=== PATIENT | male | born 1985 | race African-American/Black ===

== ENCOUNTER 2017-01-30 14:54 | Inpatient (IN) ==
[2017-01-30] MEDS ORDERED: THIAMINE INJ 100 MG, FOLIC ACID INJ 1 MG, MAGNESIUM SULF INJ 2 GM, MULTIVITAMIN INJ 10 ... IV ONE (16:21)
--- NOTE | 2017-01-30 16:22 | Emergency Department Note ---
Prabhjot Boss Brittany, am scribing for, and in the presence of, Shirin Rangel DO 16:19. IJuan Carlos Debra, DO, personally performed the services described in this documentation, ascribed by Gayle Rick in my presence, and it is both accurate and complete 622 . Arrival - Arrival Chief Complaint: Non-Specific Stated Complaint: yellow eyes/swollen feet ED Nursing Triage Note: C/O SWELLING IN HIS LEFT LEG SINCE LAST EVENING., STATES HE NOTICED HIS EYES WERE YELLOW LAST EVENING, + SCLERAL YELLOW AT TIME OF TRIAGE., + PITTING EDEMA NOTED TO THE LEFT ANKLE AND LEFT LOWER LEG., ALSO STATES HIS STOMACH IS SWOLLEN.,. STATES HE DRINKS 6 BEERS AND PINT OF LIQIOUR PER DAY FOR THE LAST 5-6 YEARS Mode of Arrival: Ambulatory Limitations: No Limitations Source: Patient, RN Notes Reviewed - History of Present Illness HPI Narrative: Patient is a 31 y/o black male presenting to the ED with multiple complaints with an onset of a week. Patient for the past week has had some scleral icterus , lower extremity edema, abdominal distention, abdominal pain, N/V, and calf pain. in room confirms that patient has been vomiting at least once everyday after ETOH intake and has been "sluggish" for the past two days. Patient does admit to an ETOH intake of 6 beers and a pint of liquor per day for the past 5-6 years. No other complaint/pain. Allergies/Adverse Reactions: Allergies Allergy/AdvReac Type Severity Reaction Status Date / Time No Known Allergies Allergy Verified 01/30/17 15:04 Home Medications: Home Medications Medication Instructions Recorded Confirmed Type No Known Home Medications [No 01/30/17 01/30/17 History Known Home Medications] Review of System - Review of System 12 point system: reviewed and no additional remarkable complaints except as stated - Review of System Eyes: Present: as per HPI Gastrointestinal: Present: as per HPI, abdominal pain, nausea, vomiting Medical,Surgical,& Family Hx - Medical History Cardio: History of: Hypertension Gastrointestinal: History of: GERD - Surgical History Thoracic Surgeries: Patient denies;: Lobectomy Neurologic Surgeries: Patient denies: Neurologic Surgery Orthopedic Surgeries: Surgical HX of;: Orthopedic Surgery (neck) - Family History Family History: Reports;: Family Heart Disease (father (unknown heart surgery at 56).), Family Hypertension (mother) - Social History Smoking Status: Smoker, status unknown Frequency of Alcohol Use: Frequently Type of Drug Use: None Exam Vital Signs: Vital Signs Temperature 98.3 F 01/30/17 14:58 Pulse Rate 92 H 01/30/17 14:58 Respiratory Rate 18 01/30/17 14:58 Blood Pressure 122/92 01/30/17 14:58 O2 Sat by Pulse Oximetry 97 01/30/17 14:58 - General General appearance: alert, in no apparent distress - Head Head exam: Present: atraumatic, normocephalic, normal inspection - Eye Eye exam: Present: PERRL, EOMI, scleral icterus. Absent: normal appearance - ENT ENT exam: Present: normal exam, normal oropharynx - Neck Neck exam: Present: normal inspection, full ROM, trachea midline - Chest Chest inspection: Present: normal inspection, symmetric chest wall rise - Respiratory Respiratory exam: Present: normal lung sounds bilaterally. Absent: rales, rhonchi, wheezes - Cardiovascular Cardiovascular exam: Present: regular rate, normal rhythm, normal heart sounds. Absent: murmur, rubs, gallop - Abdominal Exam Abdominal exam: Present: soft, normal bowel sounds, organomegaly (slightly enlarged liver). Absent: distention, tenderness - Extremities Exam Extremities exam: Present: full ROM. Absent: normal inspection (mildly swollen left lower extremity) - Back Exam Back exam: Present: normal inspection - Neurological Exam Neurological exam: Present: alert, oriented X3, CN II-XII intact. Absent: motor sensory deficit - Psychiatric Psychiatric exam: Present: normal affect, normal mood - Skin Skin exam: Present: warm, dry Results - Labs CBC & BMP: 01/30/17 16:45 01/30/17 16:45 Lab Results: I have reviewed the patients labs Labs: Laboratory Tests 01/30/17 16:45 WBC 15.3 H RBC 4.23 Hgb 10.6 L Hct 31.3 L MCV 74.0 L MCH 25 L RDW 19.4 H Plt Count 111 L Lymph % (Auto) 15.0 L Neut # (Auto) 10.9 H [place] # (Auto) 1.4 H Laboratory Tests 01/30/17 16:19 Urine Color Janae Urine Appearance Clear Urine pH 6.0 Ur Specific Viola 1.018 Urine Protein Negative Urine Glucose (UA) Negative Urine Ketones Negative Urine Blood Negative Urine Nitrate Negative Urine Bilirubin Moderate H Urine Urobilinogen 4.0 H Urine Leukocytes Negative Urine WBC 2 Urine Mucus Occasional Laboratory Tests 01/30/17 01/30/17 16:45 16:45 Sodium 133 L Potassium 4.0 Chloride 100 BUN 8 Creatinine 0.90 Glucose 101 Calculated Osmolality 263.4 L Calcium 7.7 L Total Bilirubin 11.20 H AST 75 H Alkaline Phosphatase 540 H Ammonia < 10 L Total Protein 4.9 L Albumin 1.5 L Albumin/Globulin Ratio 0.4 L Serum Alcohol < 15 L Laboratory Tests 01/30/17 16:45 Ammonia < 10 L Lipase 306.0 - Diagnostic Findings Procedure: Chest x-ray: report reviewed by me (Minimal opacities within the right lung base may represent atelectasis although developing infectious/ inflammatory infiltrates are not excluded.) Disposition Clinical Impression: ETOH abuse, Pneumonia Case discussed with: patient, patient's family Disposition: Still a Patient Condition: Stable Time of Disposition: 17:55
[2017-01-30 16:56] LABS: Basophils # 0.1 10*3/uL (0.0-0.2); Basophils % 0.3 % (0.0-0.8); Eosinophils # 0.1 10*3/uL (0.0-0.87); Eosinophils % 0.7 % (0.00-10.9); Hematocrit 31.3 VOL% (42.0-52.0); Hemoglobin 10.6 GM/DL (14.0-18.0); Immature Granulocytes Absolute 0.45 #; Lymphocytes # 2.3 10*3/uL (1.4-4.0); Mean Corpuscular HGB Conc 33.9 GM/DL (32-36); Mean Corpuscular Hemoglobin 25 PG (27-34); Monocytes # 1.4 10*3/uL (0.11-0.8); Monocytes % 9.2 % (1.7-12.7); NRBC # 0.94 10*3/uL; Neutrophils # 10.9 10*3/uL (1.4-7.4); Neutrophils % 71.8 % (38.7-73.9); Platelet Count 111 T/CUMM (130-400); Red Blood Count 4.23 MC/CUMM (3.8-5.5); Red Cell Distribution Width 19.4 % (9.3-17.3); White Blood Count 15.3 T/CUMM (4-12)
[2017-01-30 17:09] LABS: Apearance,Urine CLEAR (Clear); Bilirubin,Urine Moderate mg/dL (Negative); Blood, Urine Negative (Negative); Glucose,Urine (UA) Negative (Negative); Ketones,Urine Negative (Negative); Mucus,Urine Occasional /LPF (Occasional); Nitrite,Urine Negative (Negative); Protein,Urine Negative; Urine Color Amber (Yellow); Urine Specific Gravity 1.018 (1.001-1.035); WBC,Urine 2 /HPF (0-6)
[2017-01-30 17:15] LABS: Alanine Aminotransferase 59 U/L (16-61); Albumin 1.5 G/DL (3.4-5.0); Alkaline Phosphatase 540 U/L (45-117); Aspartate Amino Transferase 75 U/L (0-37); Blood Urea Nitrogen 8 MG/DL (7-18); Calcium 7.7 MG/DL (8.5-10.1); Glucose 101 MG/DL (74-106); Osmolality,Calculated 263.4 MOS/KG (273-304); Sodium 133 MMOL/L (136-145); Total Protein 4.9 G/DL (6.4-8.3)
[2017-01-30 17:21] LABS: Ammonia < 10 UMOL/L (11-32)
--- NOTE | 2017-01-30 17:25 | XRay Report ---
Exam: XR chest 1V portable Indication: Shortness of breath Comparison study: 08/12/2015 Findings: The heart, mediastinum and bony structures are stable from prior. Minimal linear/interstitial opacities are noted in the right lung base, which are new from prior. Otherwise, there is no focal consolidation, pneumothorax or pleural effusion identified. Impression: Minimal opacities within the right lung base may represent atelectasis although developing infectious/inflammatory infiltrates are not excluded. PROCEDURE INTERPRETED AT [facility] [place] DEPARTMENT OF RADIOLOGY Final Report Signed by: Ashwin Doty
[2017-01-30] MEDS ORDERED: cefTRIAXone 1,000 MG in SODIUM CHLORIDE 0.9% 100 ML IV STA (17:55)
[2017-01-30] MEDS ORDERED: cefTRIAXone 1,000 MG VIAL ONE (18:10)
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
[2017-01-30 18:29] LABS: Hepatitis A Ab IgM Quant 0.08 Index; Hepatitis A Ab IgM Result Negative (Negative); Hepatitis B Core IgM Quant 0.16 Index; Hepatitis B Core IgM Result Negative (Negative); Hepatitis B Surface Ag Result Negative (Negative); Hepatitis C Virus Ab Result Negative (Negative)
[2017-01-30 19:09] LABS: PT Patient Result 10.3 SECS
--- NOTE | 2017-01-30 19:47 | Ultrasound Report ---
Exam: US abdomen Date:01/30/2017 5:52 PM Indication: Abnormal liver function studies Comparison: Prior CT abdomen and pelvis without contrast dated Nov 09 2011 Findings: Liver: 16.1 centimeters. There is no focal lesion. There is no intrahepatic biliary ductal dilatation. Gallbladder: Moderate pericholecystic fluid and wall thickening is noted. No gallstones are visualized. Hepatic portal veins appear patent with normal direction of flow. CBD: Nondilated measuring 0.5 cm. Pancreas: Proximal pancreas appears within normal limits. The distal pancreas is obscured. Kidneys Right kidney: 11.8 x 4.7 x 5.5 cm. The renal cortical echogenicity and thickness appear preserved. There is no hydronephrosis. There is an area of hyperechogenicity within the mid kidney measuring up to 1.4 x 1.3 x 0.7 cm, which is indeterminate. A similar lesion is immediately deep to this previously mentioned lesion and measures 0.9 x 0.7 x 0.4 cm. Both lesions do not demonstrate posterior shadowing. There is a hypoechoic/anechoic lesion likely representing a cyst at the upper pole measuring up to 3 cm maximum dimension. Adjacent to the right kidney upper pole, there is an additional area of hypoechogenicity measuring up to 4.4 x 3.2 x 3 cm. This is not definitely within the renal parenchyma, but it is difficult to locate with urgency and may represent an adrenal cyst. Left kidney: 11.1 x 6.3 x 4.9 cm. Renal cortical echogenicity and thickness are within normal limits. There is no hydronephrosis. Aorta IVC: Aorta is not visualized due to overlying bowel gas. IVC is patent. Spleen: No focal lesions. Spleen measures 7.6 x 3.4 x 3.6 cm maximum dimensions. There is a small amount of ascites within the abdomen. Impression: 1. No acute sonographic abnormality in the abdomen. 2. Gallbladder wall thickening and pericholecystic fluid. Correlate with postprandial state. Acute calculus cholecystitis is not entirely excluded with a relatively less likely. Nuclear medicine gallbladder function study may be helpful for further evaluation. 3. Hyperechoic lesions within the right mid kidney are of indeterminate etiology. Correlation with CT imaging of the abdomen/pelvis with intravenous contrast, renal mass protocol, would be recommended. Additionally, the 4.4 cm hypoechoic, probable cystic lesion immediately adjacent to the upper pole right kidney may represent an adrenal cyst, but this is poorly visualized and can be further evaluated on CT imaging. PROCEDURE INTERPRETED AT [facility] DEPARTMENT OF RADIOLOGY Final Report Signed by: Ashwin Doty
[2017-01-30] MEDS ORDERED: FUROSEMIDE 20 MG/2 ML VIAL IV STA (19:48)
[2017-01-30] MEDS ORDERED: LORazepam 2 MG/1 ML VIAL IV PRN (19:48)
[2017-01-30] MEDS ORDERED: MULTIVITAMIN INJ 10 ML in SODIUM CHLORIDE 0.45% 1,000 ML IV SCH (19:48)
[2017-01-30] MEDS ORDERED: ONDANSETRON 4 MG/2 ML VIAL IV PRN (19:48)
[2017-01-30] MEDS ORDERED: POTASSIUM CHLORIDE 20 MEQ/15 ML UDCUP PO ONE (19:48)
[2017-01-30] MEDS: OXAZEPAM 10 MG CAPSULE PO SCH (21:36)
[2017-01-30 21:37] LABS: Basophils # 0.1 10*3/uL (0.0-0.2); Basophils % 0.5 % (0.0-0.8); Eosinophils # 0.1 10*3/uL (0.0-0.87); Eosinophils % 0.9 % (0.00-10.9); Hematocrit 31.5 VOL% (42.0-52.0); Hemoglobin 10.7 GM/DL (14.0-18.0); Immature Granulocytes % 4.7 %; Lymphocytes # 2.6 10*3/uL (1.4-4.0); Lymphocytes % 17.2 % (21.2-54.2); Mean Corpuscular Hemoglobin 25 PG (27-34); Mean Corpuscular Volume 73.8 FL (87-102); Monocytes # 1.6 10*3/uL (0.11-0.8); Monocytes % 10.7 % (1.7-12.7); NRBC # 0.95 10*3/uL; Neutrophils # 9.8 10*3/uL (1.4-7.4); Red Blood Count 4.27 MC/CUMM (3.8-5.5); Red Cell Distribution Width 19.5 % (9.3-17.3); White Blood Count 14.9 T/CUMM (4-12)
[2017-01-30 21:41] LABS: Platelet Count 103 T/CUMM (130-400)
[2017-01-30 22:05] LABS: Folate > 24.0 NG/ML (5.4-24.0); Vitamin B12 > 2000 PG/ML (211-911)
[2017-01-30 23:37] LABS: Band Neutrophils 4 % (0-10); Lymphocytes 14 % (20-55); Metamyelocytes 2 %; Myelocytes 2 %; Nucleated Red Blood Cells 11 (0-5); Segmented Neutrophils 72 % (50-85); Total Cells Counted 100
[2017-01-30 23:41] LABS: Atypical Lymphocytes Few
[2017-01-30 23:42] LABS: Hypochromasia 1+; Platelet Estimate Adequate; Polychromasia 1+; Target Cells 1+
[2017-01-31 04:34] LABS: Basophils % 0.4 % (0.0-0.8); Eosinophils # 0.1 10*3/uL (0.0-0.87); Hematocrit 26.3 VOL% (42.0-52.0); Hemoglobin 9.1 GM/DL (14.0-18.0); Immature Granulocytes % 3.1 %; Immature Granulocytes Absolute 0.35 #; Lymphocytes # 2.3 10*3/uL (1.4-4.0); Lymphocytes % 20.1 % (21.2-54.2); Mean Corpuscular HGB Conc 34.6 GM/DL (32-36); Mean Corpuscular Hemoglobin 25 PG (27-34); Mean Corpuscular Volume 71.9 FL (87-102); Monocytes # 1.3 10*3/uL (0.11-0.8); Monocytes % 11.6 % (1.7-12.7); NRBC # 0.67 10*3/uL; Neutrophils # 7.3 10*3/uL (1.4-7.4); Neutrophils % 63.8 % (38.7-73.9); Platelet Count 93 T/CUMM (130-400); Red Blood Count 3.66 MC/CUMM (3.8-5.5); Red Cell Distribution Width 19.2 % (9.3-17.3); White Blood Count 11.4 T/CUMM (4-12)
[2017-01-31] MEDS: SODIUM CHLORIDE IV SCH ×2 (04:57→14:54)
[2017-01-31] MEDS: [UNRECOGNIZED DRUG - OTHER] IV SCH ×2 (04:57→14:54)
[2017-01-31] MEDS: MULTIVITAMIN IV SCH ×2 (04:57→14:54)
[2017-01-31 05:06] LABS: Albumin 1.3 G/DL (3.4-5.0); Bilirubin,Total 7.7 MG/DL (0.2-1.0); Calcium 6.9 MG/DL (8.5-10.1); Magnesium 2.5 MG/DL (1.8-2.4); Osmolality,Calculated 274.5 MOS/KG (273-304); Potassium 3.7 MMOL/L (3.5-5.1); Total Protein 4.2 G/DL (6.4-8.3)
[2017-01-31 05:18] LABS: Eosinophils 2 % (0-10); Lymphocytes 14 % (20-55); Myelocytes 1 %; Nucleated Red Blood Cells 5 (0-5); Segmented Neutrophils 79 % (50-85); Total Cells Counted 100
[2017-01-31 05:19] LABS: Hypochromasia 1+; Microcytosis 1+; Platelet Estimate Decreased; Target Cells 2+
[2017-01-31 07:11] LABS: Sedimentation Rate-Westergren 23 MM/HR (0-15)
--- NOTE | 2017-01-31 09:32 | Hospitalist Progress Note ---
Assessment and Plan - Time spent with patient Time spent with patient: Less than 30 minutes (1) Elevated liver function studies Status: Acute Assessment and plan: 01/30/17: Patient has significant elevation of alkaline phosphatase as well as bilirubin with minimal elevation of transaminases. Hepatitis panel has been ordered in the emergency department. Will obtain abdominal ultrasound this time. LFT elevation pattern consistent with intrahepatic cholestasis which is likely secondary to underlying alcohol abuse. INR will be obtained as well to assess synthetic function at which time we will be able to calculate discriminate factor score. Will consult gastroenterology for further assistance. 01/31/17: Hepatitis studies have been negative. Abdominal ultrasound is been noted. GI consultation is currently pending. He has had improvement in his liver function studies at this time. Discuss alcohol abstinence with the patient. Current Visit: Yes (2) Anemia Status: Chronic Assessment and plan: 01/30/17: Patient has anemia which is likely chronic in nature as he is hemodynamically stable. Will obtain anemia profile and stools for occult blood. Further workup pending based on patient's clinical response and the results of the pending database. 01/31/17: Patient remains hemodynamically stable without any evidence of bleeding. Anemia profile is pending this is likely chronic in nature and related to his underlying alcohol abuse. He did have a decrease in H&H overnight which may be secondary to hemodilution. Stool studies are currently pending. He is on IV proton pump inhibitor. Gastroenterology has been consulted. Will continue to follow. Current Visit: Yes (3) Thrombocytopenia Status: Acute Assessment and plan: Patient has mild thrombocytopenia without evidence of bleeding. This is likely secondary to his EtOH use. Platelet count is slightly lower today. We will continue to follow. He will receive mechanical DVT prophylaxis and avoid any pharmacologic measures at this time. Current Visit: Yes (4) ETOH abuse Status: Acute Assessment and plan: Patient has chronic alcohol abuse. Last drink was this morning. Will provide a multivitamin and thiamine supplementation. Will withhold his alcohol at this time and begin benzodiazepines for alcohol withdrawal/DT prophylaxis. Current Visit: Yes (5) Nicotine addiction Status: Chronic Assessment and plan: Patient has chronic nicotine addiction, smoking one half packs per day. Recommended cessation will provide nicotine patch at this time. Current Visit: No Qualifiers: Nicotine product type: cigarettes (6) Malnutrition Status: Chronic Assessment and plan: Patient has albumin of 1.5. Malnutrition likely secondary to underlying alcohol abuse as well. Will provide multivitamin, thiamine, nutritional support. Current Visit: Yes (7) Renal mass Status: Acute Assessment and plan: We will obtain CT abdomen and pelvis with IV contrast, renal protocol for further evaluation. Current Visit: Yes Hospitalist: Subjective Interval history: Patient has no new complaints today. Swelling of his legs is improved. He continues to be concerned about his abdominal tightness. He denies any nausea, vomiting, diarrhea, melena, hematochezia or hematemesis at this time. Exam - Constitutional Vitals: Period Temp Pulse Resp BP Sys/Mensah Pulse Ox Last 24 Hr 97.7 F-99.2 F 73-116 18-20 105-127/60-82 98-99 General appearance: no acute distress - Head Head exam: Present: normocephalic, atraumatic - Eye Eye exam: Present: EOMI, scleral icterus Pupils: Present: BERE - ENT ENT exam: Present: normal oropharynx - Neck Neck exam: Present: normal inspection - Respiratory Respiratory exam: Present: clear to auscultation bilaterally. Absent: rales, rhonchi, wheezes - Cardiovascular Cardiovascular exam: Present: regular rate and rhythm. Absent: systolic murmur , tachycardia - GI/Abdominal GI/Abdominal exam: Present: normal bowel sounds, distended, soft. Absent: mass , tenderness, rebound - Extremities Exam Extremities exam: Absent: calf tenderness, edema - Back Exam Back exam: Present: normal inspection - Neurological Exam Neurological exam: Present: alert, oriented X3, CN II-XII intact. Absent: motor sensory deficit - Psychiatric Psychiatric exam: Present: normal affect, normal mood. Absent: agitated, anxious - Skin Skin exam: Present: warm, dry. Absent: rash Results - Labs CBC & BMP: 01/31/17 03:41 01/31/17 03:41 Lab Results: I have reviewed the past 24 hour labs - Diagnostic Findings Procedure: Ultrasound: report reviewed by me
[2017-01-31] MEDS: PANTOPRAZOLE 40 MG TABLET PO SCH (10:50)
[2017-01-31] MEDS: NICOTINE 21 MG/24 HR PATCH TRANSDERM SCH (10:50)
--- NOTE | 2017-01-31 11:15 | CT Report ---
CT abdomen pelvis w con Indication: Renal mass, abnormal liver function studies Comparison: Prior CT abdomen and pelvis 11/09/2011 and ultrasound dated 01/30/2017 Technique: CT of the abdomen and pelvis was performed following administration of intravenous contrast. Coronal and sagittal reformatted images were additionally created and submitted for review. The total DLP is 496.5 mGy*cm. Dose reduction: This CT exam was performed using one or more of the following dose reduction techniques: Automated exposure control, automated adjustment of the mA and/or KV according to patient size, or use of iterative reconstruction technique. Findings: Trace right pleural effusion and posterior basilar atelectatic changes. There is no pericardial effusion. ABDOMEN: Liver/Gallbladder: Mild periportal edema is noted. There is also contraction of the gallbladder with pericholecystic fluid. There is no intrahepatic or extrahepatic biliary ductal dilatation. Moderate ascites is noted within the upper abdomen. Spleen: No acute findings. Pancreas: No acute findings. Adrenals: Both adrenal glands appear within normal limits. Specifically, no cystic lesions are identified within the right adrenal gland as previously questioned on ultrasound images. Kidneys: There is a 3 cm hypodense nonenhancing lesion within the right upper pole, most compatible with a cyst, which is unchanged in size from the 2012 CT study. There is no hydronephrosis bilaterally. There is normal excretion of contrast from both kidneys. Moderate fluid is noted adjacent to the right kidney which is somewhat loculated within the lesser sac, which may correspond to the questioned cystic lesion seen on prior ultrasound images. Bowel/mesentery: There is mild mucosal thickening suggested within the second-fourth position of the duodenum with mild mucosal thickening of the proximal jejunum. There is also mild periduodenal inflammatory changes and fluid within the retroperitoneal fat, which is nonspecific but suspicious for underlying infectious/inflammatory changes. There is no evidence of small bowel obstruction. There is no free air within the abdomen. Moderate ascites is noted throughout the abdomen/pelvis. Colon is also nondilated. Stool is noted throughout the colon. The appendix is not definitely identified. Retroperitoneum: No evidence of aortic aneurysm or significant retroperitoneal adenopathy. PELVIS: Moderate free fluid in the dependent pelvis. Bladder appears unremarkable for degree of distention. The prostate is unremarkable. There is no adenopathy in the pelvis. BONES: No acute or suspicious osseous abnormalities are identified. Mild degenerative changes of the lumbosacral junction. IMPRESSION: 1. Moderate volume of ascites throughout the abdomen/pelvis, which is of uncertain etiology. No evidence of small bowel obstruction. Mild inflammatory changes about the retroperitoneal portion of the duodenum may represent infectious/inflammatory duodenitis. 2. No evidence of intrahepatic biliary ductal dilatation. Mildly contracted gallbladder with pericholecystic fluid may be reactive or represent infectious/inflammatory changes. Correlate clinically. 3. Stable simple-appearing right renal cyst. No evidence of adrenal mass or enhancing renal mass. 4. Minimal right basilar atelectasis and trace right pleural effusion. 01/31/2017 10:54 AM PROCEDURE INTERPRETED AT [facility] DEPARTMENT OF RADIOLOGY Final Report Signed by: Ashwin Doty
[2017-01-31] MEDS: OXAZEPAM 10 MG CAPSULE PO SCH ×2 (11:35→21:39)
[2017-01-31] MEDS: THIAMINE 200 MG/2 ML VIAL IV SCH (11:36)
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
[2017-01-31] MEDS: LACTULOSE 20 GM/30 ML UDCUP PO SCH ×2 (15:51→21:39)
[2017-02-01 06:35] LABS: Basophils # 0.1 10*3/uL (0.0-0.2); Basophils % 0.4 % (0.0-0.8); Eosinophils # 0.1 10*3/uL (0.0-0.87); Eosinophils % 1.2 % (0.00-10.9); Hematocrit 30.9 VOL% (42.0-52.0); Hemoglobin 10.1 GM/DL (14.0-18.0); Immature Granulocytes Absolute 0.45 #; Lymphocytes # 2.5 10*3/uL (1.4-4.0); Lymphocytes % 22.7 % (21.2-54.2); Mean Corpuscular HGB Conc 32.7 GM/DL (32-36); Mean Corpuscular Hemoglobin 24 PG (27-34); Mean Corpuscular Volume 74.6 FL (87-102); Monocytes % 9.2 % (1.7-12.7); NRBC # 0.69 10*3/uL; Neutrophils % 62.5 % (38.7-73.9); Platelet Count 121 T/CUMM (130-400); Red Blood Count 4.14 MC/CUMM (3.8-5.5); Red Cell Distribution Width 20.8 % (9.3-17.3); White Blood Count 11.2 T/CUMM (4-12)
[2017-02-01 06:59] LABS: % Iron Saturation 70.3 % (18-50)
[2017-02-01 07:04] LABS: Albumin 1.5 G/DL (3.4-5.0); Bilirubin,Total 7.1 MG/DL (0.2-1.0); Calcium 7.5 MG/DL (8.5-10.1); Osmolality,Calculated 271.7 MOS/KG (273-304); Potassium 4.2 MMOL/L (3.5-5.1); Total Protein 5.2 G/DL (6.4-8.3)
[2017-02-01 07:16] LABS: Band Neutrophils 2 % (0-10); Eosinophils 1 % (0-10); Lymphocytes 26 % (20-55); Nucleated Red Blood Cells 6 (0-5); Segmented Neutrophils 62 % (50-85); Total Cells Counted 100
[2017-02-01 07:17] LABS: Hypochromasia 1+
[2017-02-01 07:18] LABS: Microcytosis 1+; Target Cells 1+
[2017-02-01 07:19] LABS: Polychromasia Slight
[2017-02-01 07:20] LABS: Platelet Estimate Adequate
[2017-02-01 07:22] LABS: Pappenheimer Bodies 3+
[2017-02-01 08:24] LABS: Hemoglobin A1 (Alkaline) 97.2 % (96.5-98.5); Hemoglobin A2 (Alkaline) 2.8 % (1.5-3.5)
[2017-02-01] MEDS: LACTULOSE 20 GM/30 ML UDCUP PO SCH ×2 (10:03→20:47)
[2017-02-01] MEDS: THIAMINE 200 MG/2 ML VIAL IV SCH (10:04)
[2017-02-01] MEDS: PANTOPRAZOLE 40 MG TABLET PO SCH (10:04)
[2017-02-01] MEDS: OXAZEPAM 10 MG CAPSULE PO SCH ×2 (10:07→20:47)
[2017-02-01] MEDS: NICOTINE 21 MG/24 HR PATCH TRANSDERM SCH (10:07)
[2017-02-01] MEDS: SODIUM CHLORIDE IV SCH ×2 (10:14→22:30)
[2017-02-01] MEDS: MULTIVITAMIN IV SCH ×2 (10:14→22:30)
[2017-02-01] MEDS: [UNRECOGNIZED DRUG - OTHER] IV SCH ×2 (10:14→22:30)
--- NOTE | 2017-02-01 10:42 | Gastrointestinal Progress Note ---
Assessment and Plan (1) Elevated liver function studies Status: Acute Assessment and plan: 02/01-continued abdominal discomfort, distention. No nausea or vomiting. Hemoglobin 10.1 without overt bleeding. Iron studies noted. Bilirubin 7.1. Stools for occult blood still pending. Plan an addendum to followed by Dr. Lau. Current Visit: Yes Gastroenterology - PN: Subj Interval history: CC: Abdominal swelling, elevated LFTs Patient is seen awake and alert lying in bed. States he is feeling about the same at this time. Complains of continued abdominal discomfort and swelling. He states he was able to eat a regular diet this morning with no nausea or vomiting. He is afebrile at this time. Hemoglobin noted at 10.1. Platelets 20 ,000. Iron studies noted with a TIBC 138 and saturation of 70 with iron at 97. Bilirubin noted to remain at 7 today. NEO is negative. He has not had a bowel movement at this time therefore stool studies pending. No signs of DTs or withdrawal seizures at present time. ROS: Denies shortness of breath or chest pain Exam (Progress Note) - Constitutional Vitals: Period Temp Pulse Resp BP Sys/[place]ens[place] Pulse Ox Last 24 Hr 97.4 F-98.8 F 71-89 18-20 117-122/74-82 94-98 General appearance: normal weight, no acute distress - Head Head exam: Present: normal inspection, normocephalic - Eye Eye exam: Present: scleral icterus, other (Lids and conjunctive are unremarkable ) - ENT ENT exam: Present: normal exam, normal oropharynx - Neck Neck exam: Present: normal inspection - Respiratory Respiratory exam: Present: clear to auscultation bilaterally. Absent: rales, rhonchi, wheezes - Cardiovascular Cardiovascular exam: Present: regular rate and rhythm. Absent: diastolic murmur , JVD, systolic murmur - GI/Abdominal GI/Abdominal exam: Present: normal bowel sounds, ascites, distended, soft. Absent: mass, organomegaly, tenderness - Extremities Exam Extremities exam: Present: normal inspection, full ROM - Back Exam Back exam: Present: normal inspection - Neurological Exam Neurological exam: Present: alert, oriented X3 - Psychiatric Psychiatric exam: Present: normal affect, normal mood - Skin Skin exam: Present: normal color, warm, dry Results - Labs CBC & BMP: 02/01/17 05:24 05/01/17 05:24 Lab Results: I have reviewed the past 24 hour labs
--- NOTE | 2017-02-01 11:42 | Hospitalist Progress Note ---
Assessment and Plan (1) Elevated liver function studies Status: Acute Assessment and plan: Impression: 1. Elevated liver tests 2. Possible alcoholic liver disease 3. Renal mass 4. Malnutrition Plan: Workup is underway. Await further recommendations from GI. Current Visit: Yes Hospitalist: Subjective Interval history: Follow-up alcoholic liver disease, elevated alkaline phosphatase, renal cyst, and malnutrition. The patient complains of abdominal pain, and reports that it has been ongoing for a while. He had a CT of the abdomen that showed a cyst in the kidney instead of a renal mass. This is apparently been stable for at least 5 years now. His transaminases are mildly elevated, but the elevated alkaline phosphatase and hyperbilirubinemia are unexpected for simple alcoholic liver disease. Will await further GI recommendations. Iron studies, NEO, and hepatitis studies are not revealing. Alkaline phosphatase and bilirubin are trending down since admission. Exam - Constitutional Vitals: Period Temp Pulse Resp BP Sys/[place]ens[place] Pulse Ox Last 24 Hr 97.4 F-98.8 F 71-89 18-20 112-122/74-82 94-98 Vital signs are noted above. Heart is regular with no murmur or gallop. Lungs are clear anteriorly. Abdomen is protuberant with some generalized tenderness. Bowel sounds are present. There is no palpable mass. Results - Labs CBC & BMP: 02/01/17 05:24 02/01/17 05:24 Lab Results: I have reviewed the past 24 hour labs (Alkaline phosphatase and bilirubin are trending down.)
[2017-02-01] MEDS: ACETAMINOPHEN 325 MG TABLET PO PRN (16:31)
[2017-02-01] MEDS ORDERED: SODIUM CHLORIDE 0.45% 1,000 ML IV SCH (23:00)
[2017-02-02] MEDS: ACETAMINOPHEN 325 MG TABLET PO PRN (00:49)
[2017-02-02] MEDS ORDERED: MULTIVITAMIN INJ 10 ML in SODIUM CHLORIDE 0.45% 1,000 ML IV SCH (09:00)
--- NOTE | 2017-02-02 09:49 | Event Note ---
Insufficient fluid for paracentesis. Procedure canceled.
[2017-02-02] MEDS: PANTOPRAZOLE 40 MG TABLET PO SCH (10:01)
[2017-02-02] MEDS: LACTULOSE 20 GM/30 ML UDCUP PO SCH (10:01)
[2017-02-02] MEDS: OXAZEPAM 10 MG CAPSULE PO SCH (10:01)
[2017-02-02] MEDS: NICOTINE 21 MG/24 HR PATCH TRANSDERM SCH (10:02)
[2017-02-02] MEDS: THIAMINE 200 MG/2 ML VIAL IV SCH (10:03)
[2017-02-02] MEDS: MULTIVITAMIN IV SCH (10:12)
[2017-02-02] MEDS: [UNRECOGNIZED DRUG - OTHER] IV SCH (10:12)
[2017-02-02] MEDS: SODIUM CHLORIDE IV SCH (10:12)
--- NOTE | 2017-02-02 10:14 | Discharge Summary ---
Hospital Course - Hospital Course Hospital Course: Discharge diagnosis: 1. Elevated alkaline phosphatase and bilirubin, etiology not certain The patient was admitted to the hospital with some abdominal pain and distention. He has a history of alcoholism. Liver tests were not consistent with alcohol use. Evaluation showed some ascites, but on repeat ultrasonic evaluation, there was not enough ascites present to perform paracentesis. Iron studies did not suggest hemochromatosis. NEO was negative. Hepatitis serologies were negative. Albumin was 1.5. He improved symptomatically, and is now requesting discharge. Medication reconciliation has been performed. Regular diet. Activity as tolerated. Follow-up with GI in 2 weeks. This note was completed using [employer] voice recognition software. There may be company secretary errors as a result. Diagnosis - Discharge Diagnosis (1) Elevated liver function studies Status: Acute Discharge Plan - Discharge Data Disposition: Disch To Home/Self Care Condition at Discharge: Stable Discharge Diet: advance to your usual diet Activity: resume usual activities as tolerated Hygiene: no restrictions Weight Bearing at Discharge: full weight bearing Driving: no restrictions - Discharge Medications No Action No Known Home Medications [No Known Home Medications] - Follow Up or Referral Follow Up: Ajay Lau MD [Physician] - 2 Weeks - Forms/Instructions Exam - Constitutional Vitals: Period Temp Pulse Resp BP Sys/Mens[place] Pulse Ox Last 24 Hr 98.0 F-99.8 F 86-104 16-20 120-124/73-87 92-97 Vital signs are noted above. He is up and about in the room. Abdomen is less distended, and nontender today. Discharge Results Procedures and tests throughout hospitalization: Pending Orders 02/01/17 05:24 Ceruloplasmin IN AM Mitochondrial Antibody (M2) IN AM Smooth Muscle Antibody IN AM 02/02/17 04:00 US abdomen limited Routine Albumin,Peritoneal Fluid IN AM Cell Count w Diff, Peritone Fl IN AM Total Protein,Peritoneal Fluid IN AM Labs on day of discharge: Preliminary micro results at discharge 01/30/17 19:02 Blood Culture - Preliminary Blood No growth at 1 day 01/30/17 19:02 Blood Culture - Preliminary Blood No growth at 1 day DS: Provider Date of admission: 01/30/17 18:53 Primary care physician: . No PCP Attending physician on admission: Rodrigue Martins Discharging clinician: Modesto Gilmore MD Expected date of discharge: 02/02/17
[2017-02-02 10:50] VITALS: BP 119/83
--- NOTE | 2017-02-02 12:53 | Ultrasound Report ---
History: Symptomatic ascites Date: 02/02/2017 Study: Abdominal ultrasound limited Comparison exam: January 30, 2017 study Real-time ultrasound images are captured and archived. There is trace ascites noted in the right upper abdomen. No significant ascites is identified in the other 3 quadrants. Impression: Trace ascites right upper abdomen PROCEDURE INTERPRETED AT [facility] DEPARTMENT OF RADIOLOGY Final Report Signed by: Dr. Francie Lau
[2017-02-03 14:06] LABS: Mitochondrial Antibody (M2) <0.1 U
[2017-02-04 14:50] LABS: Smooth Muscle Antibody Negative (Negative)
[2017-02-05 22:25] LABS: Ceruloplasmin 47 mg/dL (18-36)
== END 2017-02-02 11:28 | disposition home or self-care (01) | DRG 948 ==
LOC: N.ED 14:54 → SUATTDRO 18:53 → N.EDINP 18:53 → N.2E 19:09
PROVIDERS: ADMIT Hospitalist; ATTEND Internal Medicine Geriatric Medicine

== ENCOUNTER 2019-09-13 17:27 | Observation (INO) ==
[2019-09-13] MEDS ORDERED: hydrALAZINE 20 MG/1 ML VIAL IV STA (19:38)
[2019-09-13 19:48] LABS: Basophils # 0.1 10*3/uL (0.0-0.2); Basophils % 0.6 % (0.0-0.8); Eosinophils % 0.2 % (0.00-10.9); Hematocrit 38.3 VOL% (42.0-52.0); Immature Granulocytes % 0.5 %; Immature Granulocytes Absolute 0.05 #; Lymphocytes # 1.3 10*3/uL (1.4-4.0); Lymphocytes % 13.1 % (21.2-54.2); Mean Corpuscular HGB Conc 33.9 GM/DL (32-36); Mean Corpuscular Volume 78.5 FL (87-102); Mean Platelet Volume 11.5 FL (9.6-12.0); Monocytes % 8.1 % (1.7-12.7); NRBC # 0.02 10*3/uL; Neutrophils % 77.5 % (38.7-73.9); Platelet Count 123 T/CUMM (130-400); Red Blood Count 4.88 MC/CUMM (3.8-5.5)
[2019-09-13 19:58] LABS: Alanine Aminotransferase 34 U/L (16-61); Albumin 4.1 G/DL (3.4-5.0); Alkaline Phosphatase 158 U/L (45-117); Aspartate Amino Transferase 69 U/L (0-37); Blood Urea Nitrogen 6 MG/DL (7-18); Calcium 8.7 MG/DL (8.5-10.1); Estimated Glom Filtration Rate 116 ML/MIN; Glucose 105 MG/DL (74-106); Total Protein 8.4 G/DL (6.4-8.3)
[2019-09-13] MEDS ORDERED: hydrALAZINE 20 MG/1 ML VIAL IV PRN (21:04)
[2019-09-13] MEDS ORDERED: BISACODYL 5 MG TABLET PO PRN (21:04)
[2019-09-13] MEDS ORDERED: NICOTINE 21 MG/24 HR PATCH TRANSDERM PRN (21:04)
[2019-09-13] MEDS ORDERED: MORPHINE 4 MG/1 ML VIAL IV PRN (21:04)
[2019-09-13] MEDS ORDERED: ACETAMINOPHEN 325 MG TABLET PO PRN (21:04)
[2019-09-13] MEDS ORDERED: ONDANSETRON 4 MG/2 ML VIAL IV PRN (21:04)
[2019-09-13] MEDS ORDERED: diphenhydrAMINE CAP 25 MG CAPSULE PO PRN (21:04)
[2019-09-13 21:11] LABS: Apearance,Urine CLEAR (Clear); Bacteria,Urine Occasional /HPF (Few); Bilirubin,Urine Negative (Negative); Blood, Urine Small mg/dL (Negative); Glucose,Urine (UA) Negative (Negative); Ketones,Urine 5 mg/dL (Negative); Mucus,Urine Occasional /LPF (Occasional); Nitrite,Urine Negative (Negative); Protein,Urine 100 MG/DL; RBC,Urine 3 /HPF (0-4); Urine Color Amber (Yellow); Urine Specific Gravity 1.024 (1.001-1.035); WBC,Urine 2 /HPF (0-6)
[2019-09-13 21:17] LABS: Barbiturates Screen,Urine Negative (Negative); Benzodiazepines Screen,Urine Negative (Negative); Cannabinoid Screen,Urine Positive (Negative); Opiate Screen,Urine Negative (Negative); Phencyclidine Screen,Urine Negative (Negative)
[2019-09-13] MEDS ORDERED: SODIUM CHLORIDE 0.9% 1,000 ML IV SCH (21:30)
[2019-09-13 22:21] LABS: Risk Ratio 2.42; Thyroid Stimulating Hormone 0.523 uIU/ml (0.358-3.74); VLDL CHOLESTEROL 12.8 MG/DL
[2019-09-13] MEDS ORDERED: ENOXAPARIN 40 MG/0.4 ML SYRINGE SUBCUT SCH (23:00)
[2019-09-13] MEDS ORDERED: INFLUENZA VIRUS VACCINE 0.5 ML SYRINGE IM ONE (23:59)
[2019-09-14 08:18] VITALS: BP 152/107
[2019-09-14] MEDS ORDERED: ATENOLOL 50 MG TABLET PO SCH (09:00)
[2019-09-14] MEDS ORDERED: amLODIPine 10 MG TABLET PO SCH (09:17)
== END 2019-09-14 10:55 | disposition home or self-care (01) ==
LOC: EDUNIT# → EDBD → N.ED 17:27 → N.EDINP 17:27 → N.2W 22:07
PROVIDERS: ADMIT Family Medicine; ATTEND Family Medicine